=== PATIENT | female | born 1995 | race Hispanic/Latino ===

== ENCOUNTER 2024-09-09 16:45 | Observation (INO) | payer MEDICAID ==
[~2024-09-09] VITALS: Ht 177.8 cm; Wt 83.5 kg
[~2024-09-09 16:45] MED LIST: PREN-18 PO
[2024-09-09 16:48] VITALS: BP 122/72; PULSE 72; RESP 16; TEMP 98
[2024-09-09] MEDS: LACTATED RINGERS 1000ML 1,000 ML IV SCH (17:45)
[2024-09-09 20:18] LABS: APPEARANCE,URINE CLEAR (CLEAR); BILIRUBIN,URINE NEGATIVE (NEGATIVE); COLOR,URINE COLORLESS (YELLOW); GLUCOSE, URINE (UA) NEGATIVE (NEGATIVE); KETONES,URINE NEGATIVE (NEGATIVE); LEUKOCYTE ESTERASE ,URINE NEGATIVE Leu/uL (NEGATIVE); NITRATE,URINE NEGATIVE (NEGATIVE); PH,URINE 6.5 (5.0-8.0); PROTEIN,URINE NEGATIVE (NEGATIVE); UROBILINOGEN,URINE 0.2 mg/dL (0.2-1.0)
[2024-09-09 20:19] LABS: ADD UA MICROSCOPIC YES
[2024-09-09 20:21] LABS: RBC,URINE 0-1 /HPF (0-1); SQUAMOUS EPITHELIAL CELL,UR RARE /HPF (0-2)
== END 2024-09-09 21:20 | disposition home or self-care (01) ==
LOC: EDH 16:45 → LDH 16:46
PROVIDERS: ADMIT Obstetrics & Gynecology; ATTEND Obstetrics & Gynecology
DX: O26.893 Other specified pregnancy related conditions, third trimester (principal); R10.30 Lower abdominal pain, unspecified; Z3A.28 28 weeks gestation of pregnancy
CPT/HCPCS: 96372; 96360; 96361; 81001; G0378 ×4; G0379; J7120 ×2; J3105